=== PATIENT | male | born 1970 | race Caucasian/White ===

== ENCOUNTER → 2019-07-21 10:07 | Outpatient (BNVA) | payer OTHER, SELFPAY | PROVIDERS: Family Provider Family Medicine; PCP Family Medicine; Visit Provider Nurse Practitioner | DX: J10.1 Influenza due to other identified influenza virus with other respiratory manifestations (principal); J06.9 Acute upper respiratory infection, unspecified; R05 Cough; R52 Pain, unspecified | CPT/HCPCS: 87804 ==

== ENCOUNTER → 2021-02-26 07:55 | Outpatient (BNVA) | payer OTHER, SELFPAY | PROVIDERS: Family Provider Family Medicine; PCP Family Medicine; Visit Provider Nurse Practitioner Family | DX: Z20.822 Contact with and (suspected) exposure to COVID-19 (principal) | CPT/HCPCS: 87426; 87635 ==

== ENCOUNTER → 2021-03-27 17:40 | Outpatient (BNVA) | payer OTHER, SELFPAY | PROVIDERS: Family Provider Family Medicine; PCP Family Medicine; Visit Provider Nurse Practitioner | DX: Z20.822 Contact with and (suspected) exposure to COVID-19 (principal); J06.9 Acute upper respiratory infection, unspecified | CPT/HCPCS: 87635 ==

== ENCOUNTER 2021-03-30 12:20 | Outpatient (CLI) | payer OTHER, SELFPAY ==
[2021-03-30 12:34] VITALS: BP 138/92; PULSE 63; RESP 16; TEMP 36.8; O2SAT 98; BMI 29.6
[2021-03-30 13:02] VITALS: BP 125/83; PULSE 64; RESP 16; TEMP 36.6; O2SAT 98
[2021-03-30 14:07] VITALS: BP 118/8; PULSE 60; RESP 16; TEMP 36.8; O2SAT 99
== END 2021-03-30 12:21 | disposition home or self-care (01) ==
LOC: OPS 12:30
PROVIDERS: PCP Family Medicine; Visit Provider Family Medicine
DX: U07.1 COVID-19 (principal)
CPT/HCPCS: 96365

== ENCOUNTER → 2023-01-17 15:21 | Outpatient (BNVA) | payer OTHER, SELFPAY | PROVIDERS: PCP Family Medicine; Visit Provider Student in an Organized Health Care Education/Training Program | DX: M65.342 Trigger finger, left ring finger | CPT/HCPCS: 20550; 73130; 99203; J3301; J3490 ==